=== PATIENT | female | born 1995 | race Caucasian/White ===

== ENCOUNTER 2021-05-17 21:54 | Emergency (ER) | payer BC ==
[~2021-05-17] VITALS: Ht 165.1 cm; Wt 135.6 kg
[2021-05-17] MEDS ORDERED: BACTRIM DS TAB1 EACH PO (22:42)
[2021-05-17 23:02] VITALS: BP 125/65
== END 2021-05-17 23:03 | disposition home or self-care (01) ==
LOC: M.ERS 21:54
DX: S90.811A Abrasion, right foot, initial encounter (principal); W45.0XXA Nail entering through skin, initial encounter; Y93.89 Activity, other specified; Y92.89 Other specified places as the place of occurrence of the external cause; Y99.8 Other external cause status